=== PATIENT | male | born 1980 | race African-American/Black ===

== ENCOUNTER 2018-12-18 09:35 | Emergency (ER) | payer MEDICAID ==
[~2018-12-18] VITALS: Ht 190.5 cm; Wt 104.0 kg
[2018-12-18] MEDS ORDERED: SODIUM CHLORIDE 0.9% 1,000 ML IV ONE (09:43)
[2018-12-18] MEDS ORDERED: TETANUS, DIPHTHERIA, PERTUSSIS VAC/PF 0.5ML (>7YR OLD) IM ONE (09:45)
[2018-12-18] MEDS ORDERED: CEFAZOLIN 1000MG PREMIX 50 ML IV ONE (09:45)
[2018-12-18] MEDS ORDERED: ONDANSETRON HCL 4MG/2ML INJ IV ONE (09:45)
[2018-12-18] MEDS ORDERED: FENTANYL CITRATE/PF 50MCG/ML 2ML VIAL IV ONE ×2 (09:45→10:15)
[2018-12-18] MEDS ORDERED: FENTANYL CITRATE/PF 50MCG/ML 2ML VIAL ONE (09:46)
[2018-12-18] MEDS ORDERED: ONDANSETRON HCL 4MG/2ML INJ ONE (09:47)
[2018-12-18] MEDS ORDERED: TRANEXAMIC ACID 1,000 MG/10 ML IV ONE (10:00)
[2018-12-18 10:04] LABS: BASOPHILS % 0.4 % (0.0-2.0); EOSINOPHILS % 2.8 % (0.0-5.0); HEMATOCRIT. 40.4 % (42.0-52.0); HEMOGLOBIN. 13.2 g/dL (14.0-18.0); LYMPHOCYTES % 48.7 % (20.0-50.0); MEAN CORPUSCULAR HEMOGLOBIN 27.1 pg (28.0-32.0); MEAN CORPUSCULAR VOLUME 82.8 fL (80.0-94.0); MONOCYTES % 5.7 % (2.0-8.0); NEUTROPHILS % 42.4 % (40.0-76.0); PLATELET 285 x1000/uL (130-400); RED BLOOD CELL COUNT 4.88 mill/uL (4.7-6.1); RED CELL DISTRIBUTION WIDTH 13.9 % (11.6-14.6)
[2018-12-18 10:10] LABS: CHLORIDE 109 mEq/L (98-107)
[2018-12-18 10:13] LABS: INR 1.1; PARTIAL THROMBOPLASTIN TIME 22.8 sec (23.4-31.0); PROTHROMBIN TIME 10.8 sec (9.6-11.0)
[2018-12-18 10:14] LABS: ETHANOL BLOOD < 10 mg/dL
[2018-12-18 10:23] VITALS: BP 133/70
[2018-12-18] MEDS ORDERED: TRANEXAMIC ACID 1,000 MG in SODIUM CHLORIDE 0.9% 100 ML IV NR (10:30)
== END 2018-12-18 10:29 | disposition short-term general hospital (02) ==
LOC: ER 09:48
DX: S82.451B Displaced comminuted fracture of shaft of right fibula, initial encounter for open fracture type I or II (principal); T79.4XXA Traumatic shock, initial encounter; X95.8XXA Assault by other firearm discharge, initial encounter; Y93.01 Activity, walking, marching and hiking; Y92.480 Sidewalk as the place of occurrence of the external cause; Z23 Encounter for immunization
CPT/HCPCS: 12001; 29505; 36415; 36430; 73590; 80053; 80320; 85025; 85610; 85730; 86850; 86900; 86901; 86920; 90471; 90715; 96365; 96368; 96375; 99291; J0690; J2405; J3010; J7030; J7040; J7050; Z7610; P9016; G0480